=== PATIENT | female | born 1995 | race American Indian/Alaskan Native ===

== ENCOUNTER 2020-03-28 12:51 | Emergency (ER) | payer OTHER ==
[~2020-03-28] VITALS: Ht 162.6 cm; Wt 63.6 kg
[2020-03-28] MEDS ORDERED: ACET-683 PO (12:58)
[2020-03-28] MEDS ORDERED: KETO10TAB PO (15:09)
[2020-03-28 15:18] VITALS: BP 113/55
== END 2020-03-28 15:21 | disposition home or self-care (01) ==
LOC: M ED 12:51
DX: R51 Headache (principal)